=== PATIENT | female | born 1955 | race Caucasian/White ===

== ENCOUNTER → 2016-11-20 | Outpatient (CLI) | payer OTHER ==
--- NOTE | 2016-11-20 15:30 | MAMMOGRAPHY REPORT ---
BILATERAL DIGITAL SCREENING MAMMOGRAM TOMOSYNTHESIS WITH CAD: 11/20/2016 CLINICAL HISTORY: Routine screening examination. TECHNIQUE: Breast tomosynthesis in addition to standard 2D mammography was performed. Current study was also evaluated with a Computer Aided Detection (CAD) system. COMPARISON: Comparison is made to exams dated: 01/02/2015 mammogram, 11/23/2013 mammogram, 10/21/2012 ma mmogram, 10/21/2011 mammogram, 07/02/2010 mammogram - [facility], and 07/25/2007. BREAST COMPOSITION: There are scattered areas of fibroglandular density in both breasts. FINDINGS: There are benign coarse and punctate microcalcifications scattered bilaterally. No suspici ous mass, architectural distortion or cluster of suspicious microcalcifications is seen. IMPRESSION: ACR BI-RADS CATEGORY 2: BENIGN There is no mammographic evidence of malignancy. A 1 year screening mammogram is recommended. The pa tient will receive written notification of the results. Approximately 10% of breast cancers are not detected with mammography. A negative mammographic report should not delay biopsy if a clinically suggestive mass is present. Jodie Dennis M.D. ay/:11/20/2016 13:17:13 Director Of Channel Marketing: Staci PERALES(Son)(M), [facility] letter sent: Normal 1/2 BI-RADS Code: ACR BI-RADS Category 2: Benign
== END | disposition home or self-care (01) ==
LOC: C.MAMM 09:40
PROVIDERS: ATTEND Obstetrics & Gynecology
DX: Z12.31 Encounter for screening mammogram for malignant neoplasm of breast (principal)

== ENCOUNTER → 2017-06-02 | Outpatient (CLI) | payer OTHER ==
[2017-06-02 10:26] LABS: ALBUMIN 3.4 gm/dl (3.4-5.0); ALT/SGPT 23 U/L (12-78); BLOOD UREA NITROGEN 11 mg/dl (7-18); CALCIUM 9.2 mg/dl (8.5-10.1); CARBON DIOXIDE 28 mmol/L (21-32); CHOLESTEROL 201 mg/dl (0-200); CREATININE 0.67 mg/dl (0.60-1.20); GLUCOSE 104 mg/dl (70-99); POTASSIUM 4.2 mmol/L (3.5-5.1); SODIUM 138 mmol/L (136-145)
[2017-06-02 10:35] LABS: ALKALINE PHOSPHATASE 87 U/L (45-117); AST/SGOT 17 U/L (15-37); LDL CHOLESTEROL CALCULATED 110 mg/dl
== END | disposition home or self-care (01) ==
LOC: C.LAB 09:19
PROVIDERS: ATTEND Nurse Practitioner Adult Health
DX: Z00.00 Encounter for general adult medical examination without abnormal findings (principal); E05.90 Thyrotoxicosis, unspecified without thyrotoxic crisis or storm; Z13.220 Encounter for screening for lipoid disorders

== ENCOUNTER → 2017-06-14 | Outpatient (CLI) | payer OTHER ==
[2017-06-15 05:58] LABS: HEMOGLOBIN A1C 5.6 % (4.5-5.6)
== END | disposition home or self-care (01) ==
LOC: C.LAB 13:06
PROVIDERS: ATTEND Nurse Practitioner Adult Health
DX: R73.01 Impaired fasting glucose (principal)

== ENCOUNTER 2018-09-12 07:50 | Observation (INO) ==
--- NOTE | 2018-09-08 10:19 | Anesthesiology Consultation ---
Date of Service September 08, 2018 Assessment & Plan (1) Encounter for pre-operative examination: Chart Review Chart Review: Acceptable Risk for Surgery and Patient NOT seen in Pre Admission Testing Consults Requested none ASA ASA3 Proposed Anesthesia Anesthesia Type: General Risk / Benefits Reviewed With: PT / POA / Parent / Guardian, Accepts Plan and Informed Consent Obtained History Surgery Operation Date: 09/12/18 10:30 Proposed Procedures p Left Breast Lumpectomy with Needle Localization and Left [place] Lymph Node Biopsy, Injection Only - Kishan Croft MD, FACS Height/Weight Height: 1.57 m Weight: 59.8 kg Allergies Allergy/AdvReac Type Severity Reaction Status Date / Time No Known Allergies Allergy Verified 09/12/18 09:30 Medications Home Medications Medication Instructions Recorded Confirmed Last Taken ascorbic acid (vitamin C) [Vitamin 500 mg PO QPM 05/20/18 09/12/18 2 Weeks Ago C] ~08/29/18 chlorzoxazone 500 mg PO HS 05/20/18 09/12/18 06/02/18 clobetasol 1 applic TOPICAL 3XWK 05/20/18 09/09/18 06/03/18 07:00 cyanocobalamin (vitamin B-12) 1,000 mcg PO QAM 05/20/18 09/12/18 2 Weeks Ago [Vitamin B-12] ~08/29/18 multivitamin 1 tab PO QPM 05/20/18 09/12/18 2 Weeks Ago ~08/29/18 pyridoxine (vitamin B6) [Vitamin 100 mg PO QAM 05/20/18 09/12/18 2 Weeks Ago B-6] ~08/29/18 venlafaxine 150 mg PO QAM 05/20/18 09/12/18 09/12/18 06:30 losartan-hydrochlorothiazide 1 tab PO QAM 09/09/18 09/12/18 09/11/18 07:00 NPO Date Last Intake of Fluids: 09/12/18 Time Last Intake of Fluids: 06:00 Last Intake of Fluids Comment: coffee with cream Date Last Intake of Solids: 09/11/18 Time Last Intake of Solids: 19:30 Past Medical History Medical History Abnormal EKG 06/2018 -- inferior and anterolateral infarcts. Had f/u echo showing normal EF, no wall motion abnormalities. Breast cancer SURGICAL INTERVENTION AND CHEMO PILL Depression Hypertension Insomnia reason for chlorzoxazone Sleep apnea moderate--no device; pt is supposed to use one Exercise / Class Metabolic Activity II 4-5 Yardwork/Stairs/Walk up hill Past Family History Family History Other No family history of adverse response to anesthesia Past Surgical History Surgical History History of section History of colonoscopy History of wisdom tooth extraction Past Anesthesia History No Hx of Anesthesia Complications and No Family Hx of Anesthesia Complications History of PONV No Hx of PONV and No Hx of Motion Sickness Social History Smoking Status: Current every day smoker tobacco type: cigarettes Smoking cigarettes per day: 6 a day x 40 years Do You Dip or Chew Tobacco: No Hx Alcohol Use: Yes Alcohol type: hard liquor alcohol intake frequency: a few times a week Hx Substance Use: No substance use type: does not use Review of Systems Respiratory: no cough and no dyspnea Cardiovascular: no chest pain, no chest pain with activity and no dyspnea on exertion Gastrointestinal: no nausea and no vomiting Physical Exam Vital Signs Last Vital Signs Temp 36.8 C 09/12/18 09:41 Pulse 78 09/12/18 09:41 Resp 20 09/12/18 09:41 BP 137/78 09/12/18 09:41 Pulse Ox 94 09/12/18 09:41 ENMT Mouth: no TMJ abnormality and no TMJ clicking Thyromental Distance: < 3.5 Finger Breadths Mallampati Class: II Neck normal visual inspection; neck extension not limited Respiratory Auscultation: lungs clear to auscultation bilaterally Cardiovascular Rate/Rhythm: regular rate and regular rhythm Psychiatric Orientation: alert and oriented x 3 Testing Electrocardiogram Date: 06/03/18 Findings: + ST @ (102) Possible left atrial enlargement. Possible inferior infarct, age undetermined. Anterolateral infarct, age undetermined. Echocardiogram Date: 06/29/18 EF: 55-60% The study was technically limited. Left ventricular systolic function is normal. Grade 1 diastolic dysfunction. Left ventricular wall motion is normal. Grossly normal valves but not all are well visualized. Laboratory Results 09/07/18 WBC: 8.43 H/H: 15.6/46.7 PLATELETS: 299 SODIUM: 140 POTASSIUM: 3.6 CHLORIDE: 105 CO2: 30 BUN: 18 CREATININE: 0.65 GLUCOSE: 83
[~2018-09-12 07:50] MED LIST: CEFAZOLIN 2000MG 2,000 MG/15 ML SYR IV SCH; LR 15ML/HR IV SCH
[2018-09-12] MEDS ORDERED: PROMETHAZINE HCL 12.5 MG in SODIUM CHLORIDE 0.9% 50 ML IV PRN ×2 (09:07→14:11)
[2018-09-12] MEDS ORDERED: PHENYLEPHRINE 100MCG/ML 5ML SYR IV PRN (09:07)
[2018-09-12] MEDS ORDERED: ATROPINE SULFATE 0.1 MG/ML 10ML SYR IV PRN (09:07)
[2018-09-12] MEDS ORDERED: HYDROmorphone INJ 1 MG/ML SYRINGE IV PRN (09:07)
[2018-09-12] MEDS ORDERED: ePHEDrine sulfate 50 MG/ML AMP IV PRN (09:07)
[2018-09-12] MEDS ORDERED: fentaNYL citrate 100 MCG/2 ML VIAL IV PRN (09:07)
[2018-09-12] MEDS ORDERED: ONDANSETRON INJ 2 MG/ML 2 ML VIAL IV PRN ×2 (09:07→14:11)
--- NOTE | 2018-09-12 09:14 | Nuclear Medicine Report ---
LEFT BREAST LYMPHOSCINTIGRAPHY CLINICAL HISTORY: BREAST CA COMPARISON STUDY: Diagnostic mammogram August 16, 2018. PROCEDURE: The procedure, risks and benefits were discussed with the patient and informed consent was obtained. The procedure was performed by Dr. Walker following a timeout. Skin of the left breast was prepped. A total of 0.497 mCi of Lymphoseek was injected in 5 intradermal aliquots within a left periareolar distribution at 8:50 AM on September 12, 2018. No imaging was requested at this time. The patie nt tolerated the procedure well and no immediate complications were evident. IMPRESSION: Left breast lymphoscintigraphy. Electronically signed by: Mian Walker M.D. 09/12/2018 9:13 AM
--- NOTE | 2018-09-12 09:59 | History & Physical Bridge Note ---
Date of Service September 12, 2018 History & Physical Bridge Note I have examined the patient, reviewed the History & Physical and in the interval since the performance of the History & Physical I have noted the following changes of clinical significance: no changes noted
[2018-09-12] MEDS ORDERED: LIDOCAINE HCL 2% 2 ML VIAL/AMP(20MG/ML) INFIL ONE (11:41)
[2018-09-12] MEDS ORDERED: PROPOFOL IV EMULSION 10 MG/ML 20 ML VIAL IV ONE (11:41)
[2018-09-12] MEDS ORDERED: fentaNYL citrate 100 MCG/2 ML VIAL ONE ×2 (11:42→12:26)
[2018-09-12] MEDS ORDERED: BUPIVACAINE 0.5 % 5 MG/1 ML MPF 30ML VIAL ONE (11:42)
[2018-09-12] MEDS ORDERED: MIDAZOLAM HCL 1 MG/ML 2ML VIAL ONE (11:42)
[2018-09-12] MEDS ORDERED: ISOSULFAN BLUE 10 MG/ML VIAL 5 ML ONE (11:42)
[2018-09-12] MEDS ORDERED: ONDANSETRON INJ 2 MG/ML 2 ML VIAL ONE (12:27)
[2018-09-12] MEDS ORDERED: DEXAMETHASONE SOD INJ 4 MG/ML VIAL ONE (12:27)
[2018-09-12] MEDS ORDERED: ePHEDrine sulfate 50 MG/ML AMP ONE (12:42)
[2018-09-12] MEDS ORDERED: GLYCOPYRROLATE 0.2 MG/ML VIAL ONE (12:42)
[2018-09-12] MEDS ORDERED: NEOSTIGMINE METHYLSULFATE 5 MG/5 ML SYR ONE (12:42)
[2018-09-12] MEDS ORDERED: ALBUTEROL HFA INHALER 8.5 GM ONE (12:50)
--- NOTE | 2018-09-12 13:20 | Operative Report ---
Post Operative Report Pre & Post Diagnosis Operation Date: 09/12/18 10:30 Pre-Op Diagnosis: Left Breast Cancer Post-Op Diagnosis: Left Breast Cancer Procedure Operation Date: 09/12/18 10:30 Actual Procedures p Left Breast Lumpectomy with Needle Localization and Left [place] Lymph Node Biopsy; excision of left upper chest nevus(Left) - Kishan Croft MD, FACS Surgeon Kishan Croft MD, FACS [employer] Louie Parham Estimated Blood Loss 10 Findings Consistent with Post-Op Diagnosis Specimens Lt breast and axillary tissue Description of Procedure see dictation I attest to the content of the Intraoperative Record and any orders documented therein. Any exceptions are noted below.
[2018-09-12] MEDS ORDERED: ACETAMINOPHEN 1,000 MG/100 ML VIAL IV STA (13:22)
--- NOTE | 2018-09-12 13:49 | Operative Report ---
DATE OF OPERATION: 09/12/2018 NAME OF OPERATION: Needle localization, left breast lumpectomy with sentinel lymph node biopsy, excision of left chest nevus. PREOPERATIVE DIAGNOSIS: Left breast cancer. POSTOPERATIVE DIAGNOSIS: Left breast cancer. STAFF SURGEON: Dr. Croft. ANESTHESIA: General. PROCEDURE DESCRIPTION: The patient was brought in the operating room and placed on the operating table in supine position. Her left arm was extended on an arm board. Her left breast and axilla were prepped and draped in usual fashion. She had a needle placed in the lateral left breast. She had been injected for sentinel lymph node biopsy. Incision was made using 0.5% plain Marcaine to anesthetize the incisions. Dissection was carried down using Neoprobe, identifying 2 small lymph nodes, which were sent for frozen section. These were negative. During the frozen section, left lumpectomy was performed. Incision was made around the needle, carrying dissection down around the needle excising the left breast tissue, which was marked with the needle lateral, short silk suture medial, plain suture superior. The short silk suture was also medial/deep. Additional superior and inferior tissue was taken, both were marked long silk suture lateral, short silk suture medial and methylene blue new margin. Clips were placed at the level of the tumor. Both incisions were closed, reapproximating the deep tissue using 2-0 plain suture, skin in the axilla using 4-0 nylon suture, skin in the breast using subcuticular 4-0 Monocryl and Steri-Strips. The patient was transferred to recovery room after appropriate covering of the incisions. Also, a small nevus was removed from the left upper chest of approximately 3 mm. This was closed using 4-0 nylon suture. I attest to the content of the Intraoperative Record and any orders documented therein. Any exception s are noted below.
--- NOTE | 2018-09-12 14:07 | Anesthesiology Progress Note ---
Date of Service September 12, 2018 Anesthesia Post Procedure Vital Signs Vital Signs: Temp Pulse Pulse Resp BP BP Pulse Ox 09/12/18 14:00 36.2 C L 74 16 111/84 98 09/12/18 13:50 77 16 121/73 91 09/12/18 13:40 77 16 135/93 98 09/12/18 13:31 36.2 C L 77 16 114/86 100 09/12/18 09:49 36.8 C 78 20 137/78 94 09/12/18 09:41 36.8 C 78 20 137/78 94 Transfer of Care Handoff Completed per policy Notes Mental Status: alert / awake / arousable and participated in evaluation Patient Amnestic to Procedure: Yes Nausea / Vomiting: adequately controlled Pain: adequately controlled Airway Patency, RR, SpO2: stable & adequate BP & HR: stable & adequate Hydration State: stable & adequate Anesthetic Complications: no major complications apparent and Pt Satisfied with anesthetic care
[2018-09-12] MEDS ORDERED: HYDROCODONE/ACETAMOPHEN 5/325MG TAB PO PRN ×2 (14:11)
[2018-09-12] MEDS ORDERED: PROMETHAZINE HCL 25 MG in SODIUM CHLORIDE 0.9% 50 ML IV PRN (14:11)
[2018-09-12] MEDS ORDERED: IBUPROFEN 600 MG TAB PO PRN (14:11)
[2018-09-12] MEDS ORDERED: ACETAMINOPHEN 325 MG TAB PO PRN (14:11)
[2018-09-12] MEDS ORDERED: MoRPHine SULFATE 2 MG/ML CARP IV PRN (14:11)
[2018-09-12] MEDS ORDERED: MoRPHine SULFATE 4 MG/ML 1 ML CARP\\VIAL IV PRN (14:11)
[2018-09-12] MEDS ORDERED: ACETAMINOPHEN 1,000 MG/100 ML VIAL IV ONE (15:00)
[2018-09-12] MEDS ORDERED: SODIUM CHLORIDE 0.9% 1000ML 1,000 ML IV SCH ×2 (15:00→18:30)
--- NOTE | 2018-09-12 15:13 | Internal Medicine Consult Note ---
Date of Consultation September 12, 2018 09/12/18 p Left Breast Lumpectomy with Needle Localization and Left [place] Lymph Node Biopsy; Surgeon: Kishan Croft Side: Left s excision of left upper chest nevus Surgeon: Kishan Croft Side: Left Assessment & Plan (1) Hypertension: Patient did not take her losartan hydrochlorthiazide combination medication this morning there is some postoperative hypertension she will be given a 50% dose reduction of her losartan currently and then resume her normal meds in the morning. With elevated blood pressure she had no chest pain pressure blurry vision headaches (2) Depression: Patient continue venlafaxine starting on 09/13 (3) Breast cancer: BREAST, LEFT, ULTRASOUND-GUIDED CORE BIOPSY: - INVASIVE MAMMARY CARCINOMA - HISTOLOGIC GRADE: LOW GRADE from previous surgical specimen History of Present Illness Attending Physician: Kishan Croft MD, [facility] History of Present Illness Patient is a 63-year-old female who presents after lumpectomy and nevus removal by Dr. Croft. This is secondary to an abnormal mammogram. Postoperatively she is doing well she is having some minor pain at the surgical site with movement but otherwise no significant discomfort. Request pain medicines over her Tylenol in case the pain worsens. She is a poor experiences with Ultram in the past Allergies Allergy/AdvReac Type Severity Reaction Status Date / Time No Known Allergies Allergy Verified 09/12/18 09:30 Home Medications Home Medications Medication Instructions Recorded Confirmed Type ascorbic acid (vitamin C) [Vitamin 500 mg PO QPM 05/20/18 09/12/18 History C] chlorzoxazone 500 mg PO HS 05/20/18 09/12/18 History clobetasol 1 applic TOPICAL 3XWK 05/20/18 09/09/18 History cyanocobalamin (vitamin B-12) 1,000 mcg PO QAM 05/20/18 09/12/18 History [Vitamin B-12] multivitamin 1 tab PO QPM 05/20/18 09/12/18 History pyridoxine (vitamin B6) [Vitamin 100 mg PO QAM 05/20/18 09/12/18 History B-6] venlafaxine 150 mg PO QAM 05/20/18 09/12/18 History losartan-hydrochlorothiazide 1 tab PO QAM 09/09/18 09/12/18 History Patient History Medical History Abnormal EKG 06/2018 -- inferior and anterolateral infarcts. Had f/u echo showing normal EF, no wall motion abnormalities. Breast cancer SURGICAL INTERVENTION AND CHEMO PILL Depression Hypertension Insomnia reason for chlorzoxazone Sleep apnea moderate--no device; pt is supposed to use one Surgical History History of section History of colonoscopy History of wisdom tooth extraction Family History Other No family history of adverse response to anesthesia Social History Preferred Language: Slovak Communication Ability: Effective Fishing Reel Assembler Required: No Beliefs That Will Affect Care: None Current Living Situation: Spouse Other Information That Helps Us Care for You: No Feels Safe at Home: Yes Safety Concerns: Feels Safe At This Time Smoking Status: Never smoker Tobacco Type: cigarettes Cigarettes Per Day: 6 a day x 40 years Do You Dip or Chew Tobacco: No Second Hand Exposure: No Tobacco Cessation Education Requested by Patient: No Hx Alcohol Use: Yes Alcohol type: wine Hx Substance Use: No Review of Systems Review of Systems: ROS: well nourished well developed. No double vision blurry vision No problems with speech or swallowing No palpitations, patient does have some chest wall pain on movement and tenderness at the surgical site No abdominal pain nausea vomiting diarrhea changes in appetite or weight No burning urine urine frequency or changes in color No focal joint pain or muscle pain No skin rashes or oral lesions No unusual bruising or bleeding No focused back pain or numbness or loss of strength No changes in memory or confusion Physical Exam Physical Exam: The patient appeared well nourished and normally developed. Vital signs as documented. Head exam is unremarkable. normocephalic, atraumatic Neck is without jugular venous distension, thyromegaly, or lymphademopathy Lungs are clear to auscultation and percussion. Cardiac exam reveals Rhythm is regular. First and second heart sounds normal. She has dressings in place over her left breast and up in her left clavicle where she had a mole removed there is only minor swelling no significant bruising Abdominal exam reveals normal bowel sounds, no masses, no organomegaly Extremities are nonedematous and both pedal pulses are present Neurologic exam is A&Ox3, no focal deficits, strength is equal bilateral Psychologically seems neither anxious or depressed Skin is warm / Dry Results & Data Vital Signs (Past 12 Hours) Vital Signs Temp Pulse Pulse Pulse Resp BP BP 09/12/18 14:51 87 19 129/75 09/12/18 14:20 36.9 C 75 18 110/73 09/12/18 14:00 36.2 C L 74 16 111/84 09/12/18 13:50 77 16 121/73 09/12/18 13:40 77 16 135/93 09/12/18 13:31 36.2 C L 77 16 114/86 09/12/18 09:49 36.8 C 78 20 137/78 09/12/18 09:41 36.8 C 78 20 137/78 Pulse Ox 09/12/18 14:51 93 09/12/18 14:20 95 09/12/18 14:00 98 09/12/18 13:50 91 09/12/18 13:40 98 09/12/18 13:31 100 09/12/18 09:49 94 09/12/18 09:41 94
[2018-09-12] MEDS ORDERED: OXYCODONE HCL IR 5 MG TAB (IMMEDIATE RELEASE) PO PRN ×2 (15:32)
--- NOTE | 2018-09-12 15:34 | Mammography Report ---
NEEDLE LOCALIZATION LEFT BREAST: 09/12/2018 CLINICAL HISTORY: 63-year-old woman with recent biopsy-proven invasive mammary carcinoma in the 1:00 left breast. She presents for preoperative needle and wire localization prior to lumpectomy. COMPARISON: Comparison is made to exams dated: 08/16/2018 ultrasound biopsy, 08/16/2018 mammogram, 08/01 ultrasound, 08/08/2018 mammogram, 11/20/2016 mammogram, and 01/02/2015 mammogram - [facility]. PATIENT CONSENT: The risks of the procedure were explained to the patient and informed consent was ob tained. The patient reported she did not eat or drink anything this morning that would preclude anes thesia. She denied allergy to lidocaine. A timeout was performed in the left breast was confirmed a s a site for preoperative localization. PROCEDURE DESCRIPTION: Prior left breast imaging was reviewed including: Left breast ultrasound-guide d core biopsy and post procedure mammograms 08/16/2018, left diagnostic mammogram and ultrasound 2018, screening mammograms 08/08/2018, 11/20/2016, 01/02/2015, 11/23/2013. The spiculated mass in the 1:00 left breast with ribbon-shaped biopsy clip is the intended target for preoperative localization. Wi th the patient in the supine position and left arm extended, the skin of the left breast was cleansed with Betadine and sterile drapes were placed. 1% buffered Lidocaine without epinephrine was adminis tered as local anesthesia. A 5cm Hubbard II needle and wire combination was inserted into the breast. Optimal positioning was confirmed and the wire was locked in place, leaving both the needle and wire within the breast, as per surgeon's preference. Post ultrasound localization left CC and ML 2D and tomosynthesis images were obtained. These post procedure mammograms demonstrate the ribbon-shaped bi opsy clip adjacent to the localization needle, at the level of the proximal niki. The entire procedu re including approach and needle length were discussed with the operating surgeon prior to surgery. The patient tolerated the procedure well and there was no immediate complication. She was sent to [facility] operating room in satisfactory condition. A specimen radiograph was obtained which demonstrates the localizing needle and wire, spiculated mass and associated ribbon-shaped biopsy clip, compatible with successful preoperative localization and s ubsequent surgical excision. IMPRESSION: NEEDLE LOCALIZATION Status post preoperative needle and wire localization for biopsy-proven carcinoma in the 1:00 left br east. The imaged specimen includes the intended abnormalities. Final surgical pathology is pending. Jodie Dennis M.D. ay/:09/12/2018 13:50:49 Crewman Armoured Personnel Carrier M[employer]: Pari Pimentel, [facility]
[2018-09-12] MEDS ORDERED: LOSARTAN POTASSIUM 50 MG TAB PO ONE (15:35)
[2018-09-12] MEDS: CEFAZOLIN 1000MG 1,000 MG/7.5 ML SYR IV SCH (21:47)
[2018-09-13] MEDS: CEFAZOLIN 1000MG 1,000 MG/7.5 ML SYR IV SCH (03:54)
--- NOTE | 2018-09-13 06:57 | Discharge Summary ---
PRINCIPAL DIAGNOSIS: Left breast cancer. PROCEDURES: The patient underwent needle localization, left breast lumpectomy with sentinel lymph node biopsy. HISTORY OF PRESENT ILLNESS AND HOSPITAL COURSE: The patient is a 53-year-old female with biopsy proven left breast cancer for definitive surgery. The patient was brought into the hospital on 09/12/2018. She was taken to the operating room. She had had a needle placed in the breast center and injection in radiology of the left breast. She underwent sentinel lymph node biopsy which showed 2 lymph nodes to be negative. She underwent left lumpectomy which she tolerated very well. She has done well overnight and is felt stable for discharge home today to be followed in the surgical clinic next week.
--- NOTE | 2018-09-13 07:46 | Anesthesiology Progress Note ---
Date of Service September 13, 2018 Anesthesia Post Procedure Vital Signs Vital Signs: Temp Pulse Pulse Pulse Resp BP BP 09/13/18 07:07 36.7 C 70 17 143/81 H 09/13/18 03:56 36.7 C 71 14 125/64 09/12/18 23:27 36.6 C 69 14 114/64 09/12/18 20:00 36.8 C 76 18 111/65 09/12/18 17:40 37.4 C 89 18 128/77 09/12/18 16:37 36.9 C 75 18 124/79 09/12/18 15:39 36.8 C 83 18 123/70 09/12/18 14:51 87 19 129/75 09/12/18 14:20 36.9 C 75 18 110/73 09/12/18 14:00 36.2 C L 74 16 111/84 09/12/18 13:50 77 16 121/73 09/12/18 13:40 77 16 135/93 09/12/18 13:31 36.2 C L 77 16 114/86 09/12/18 09:49 36.8 C 78 20 137/78 09/12/18 09:41 36.8 C 78 20 137/78 Pulse Ox 09/13/18 07:07 92 09/13/18 03:56 94 09/12/18 23:27 92 09/12/18 20:00 91 09/12/18 17:40 91 09/12/18 16:37 93 09/12/18 15:39 95 09/12/18 14:51 93 09/12/18 14:20 95 09/12/18 14:00 98 09/12/18 13:50 91 09/12/18 13:40 98 09/12/18 13:31 100 09/12/18 09:49 94 09/12/18 09:41 94 Notes Mental Status: alert / awake / arousable and participated in evaluation Patient Amnestic to Procedure: Yes Nausea / Vomiting: adequately controlled Pain: adequately controlled Airway Patency, RR, SpO2: stable & adequate BP & HR: stable & adequate Hydration State: stable & adequate Anesthetic Complications: no major complications apparent and Pt Satisfied with anesthetic care
[2018-09-13] MEDS ORDERED: hydroCHLOROthiazide 25 MG TAB PO SCH (09:00)
[2018-09-13] MEDS ORDERED: NON-FORMULARY MEDICATION (Losartan-Hydrochlorothiazide 1 TAB) PO SCH (09:00)
[2018-09-13] MEDS ORDERED: LOSARTAN POTASSIUM 50 MG TAB PO SCH (09:00)
== END 2018-09-13 09:47 | disposition home or self-care (01) ==
LOC: ASU 07:50 → 3W 07:50